=== PATIENT | male | born 1995 | race Caucasian/White ===

== ENCOUNTER 2024-02-19 22:15 | Emergency (ER) | payer SELFPAY ==
[2024-02-19] MEDS: Cyclobenzaprine 10 MG Tab PO ONE (22:48)
[2024-02-19] MEDS: Ketorolac 30 MG/ML SDV IM ONE (22:49)
== END 2024-02-19 23:12 | disposition home or self-care (01) ==
LOC: FB.ED 22:15
DX: M54.50 Low back pain, unspecified (principal)
CPT/HCPCS: 96372; 99283; A9270; J1885